=== PATIENT | male | born 1985 | race Two or more races ===

== ENCOUNTER 2020-12-01 13:17 | Emergency (ER) | payer OTHER ==
[~2020-12-01] VITALS: Ht 165.1 cm; Wt 80.0 kg
[2020-12-01 13:30] VITALS: BP 155/90
[2020-12-01] MEDS ORDERED: HYDR-2761 PO (14:40)
--- NOTE | 2020-12-01 14:40 | ED.ADGEN ---
Past Medical History Past Medical History: No Pertinent History Past Surgical History: No Surgical History Smoking Status: Never Smoker Alcohol Use: Occasionally General Adult EDM: Chief Complaint: ANKLE PROBLEM HPI: HPI: Patient is a 35 year old male coming in for right lower extremity pain. Was playing basketball when he went to start running and felt a "pop" in the back of his leg. Has been able to bear weight with a limp. States that he feels like his Achilles tendon is not where it should be. No other injuries. Otherwise well denies any medication or antibiotic use. Review of Systems: Review of Systems: All other systems within normal limits except for as noted in the HPI Allergies: Allergies: Allergies Coded Allergies Type Severity Reaction Last Updated Verified Sulfa (Sulfonamide Antibiotics) Allergy Unknown 12/01/20 Yes Physical Exam: PE: Constitutional: Well developed, well nourished, no acute distress, non-toxic appearance. [] HENT: Normocephalic, atraumatic, bilateral external ears normal, nose normal. [] Eyes: PERRLA, conjunctiva normal, no discharge. [] Neck: No rigidity, supple, no stridor. [] Cardiovascular: Regular rate and rhythm, brisk cap refill [] Lungs & Thorax: Non labored symmetric respirations, no tachypnea or respiratory distress [] Abdomen: Soft, nondistended. Skin: Warm, dry, no erythema, no rash. [] Back: Unremarkable Extremities: No deformities, range of motion grossly intact, no lower extremity edema. Right lower extremity: No deformity, Pizano test suggestive of Achilles tendon rupture. [] Neurologic: Alert and oriented X 3, no focal deficits noted. [] Psychologic: Affect normal, judgement normal, mood normal. [] Current Patient Data: Vital Signs: Vital Signs Date Time Temp Pulse Resp B/P (MAP) Pulse Ox O2 Delivery O2 Flow Rate FiO2 12/01/20 13:30 98.4 89 16 155/90 (111) 96 Room Air 98.4 EKG: EKG: [] Heart Score: C/O Chest Pain: No Risk Factors: Risk Factors: DM, Current or recent (<one month) smoker, HTN, HLP, family history of CAD, obesity. Risk Scores: Score 0 - 3: 2.5% MACE over next 6 weeks - Discharge Home Score 4 - 6: 20.3% MACE over next 6 weeks - Admit for Clinical Observation Score 7 - 10: 72.7% MACE over next 6 weeks - Early Invasive Strategies Radiology/Procedures: Radiology/Procedures: [] Course & Med Decision Making: Course & Med Decision Making Physical exam consistent with Achilles tendon rupture. Placed in posterior short leg splint in 30 degrees of plantarflexion Betina Disclaimer: Betina Disclaimer: This electronic medical record was generated, in whole or in part, using a voice recognition dictation system. Departure Departure Impression: Primary Impression: Achilles rupture, right Disposition: 01 DC HOME SELF CARE/HOMELESS Condition: STABLE Referrals: ESTHER ANDERSEN MD (PCP) [facility] Patient Instructions: Achilles Tendon Rupture (Complete) Scripts Hydrocodone Bit/Acetaminophen (HYDROCODONE-APAP 5-325 ) 1 Tab Tablet 1 TAB PO PRN Q6HRS PRN for PAIN for 3 Days, #10 TAB 0 Refills Prov: MACO FLETCHER MD 12/01/20 MACO FLETCHER MD Dec 01, 2020 14:40
== END 2020-12-01 14:55 | disposition home or self-care (01) ==
LOC: ER 13:17
DX: S86.011A Strain of right Achilles tendon, initial encounter (principal); Z88.2 Allergy status to sulfonamides; W21.05XA Struck by basketball, initial encounter; Y93.89 Activity, other specified; Y92.89 Other specified places as the place of occurrence of the external cause; Y99.8 Other external cause status
CPT/HCPCS: 29515; 99283